=== PATIENT | female | born 1970 | race Hispanic/Latino ===

== ENCOUNTER 2023-11-20 10:25 | Inpatient (IN) | payer OTHER ==
[~2023-11-20] VITALS: Ht 149.9 cm; Wt 58.0 kg
[2023-11-20 10:59] LABS: BASOPHILS 0.3 % (0-2); EOSINOPHILS 0.8 % (0-6); HEMATOCRIT 38.8 % (35.0-50.0); HEMOGLOBIN 12.9 g/dL (12.0-18.0); MCH 29.1 (27-36); MCHC 33.3 g/dl (30-36); MCV 87.2 fl (81-99); NEUTROPHILS 68.9 % (39-80); PLATELET COUNT 294 K/uL (140-440); RBC 4.44 M/ul (4.3-5.7); RDW 12.7 (10.5-15.0)
[2023-11-20] MEDS ORDERED: CEFTRIAXONE/SODIUM CHLORIDE 2 GM/100 ML PIGGYBACK IV ONE (11:00)
[2023-11-20] MEDS ORDERED: SODIUM CHLORIDE 0.9% 1,000 ML IV ONE (11:00)
[2023-11-20 11:11] LABS: INR 1.04 (0.80-1.30); PROTIME 13.2 Sec (11.2-14.2)
[2023-11-20 11:13] LABS: PARTIAL THROMBOPLASTIN TIME 27.5 Sec (22.9-41.3)
[2023-11-20] MEDS ORDERED: methylPREDNISolone SOD SUCC 125 MG/2 ML VIAL IV ONE (11:15)
[2023-11-20] MEDS ORDERED: SODIUM CHLORIDE 0.9% 1,000 ML IV PRN (11:15)
[2023-11-20] MEDS ORDERED: AZITHROMYCIN/DEXTROSE 500 MG/250 ML BAG IV ONE (11:15)
[2023-11-20] MEDS ORDERED: ALBUTEROL/IPRATROPIUM 3 ML NEB INH ONE ×2 (11:15→12:30)
[2023-11-20 11:18] LABS: ALBUMIN 2.7 g/dL (3.4-5.0); ALBUMIN/GLOBULIN RATIO 0.47 (1.1-2.4); ANION GAP 14.7 (7-21); BUN/CREATININE RATIO 13.04 (6.0-28.6); CALCIUM 9.1 mg/dL (8.5-10.1); CREATININE, SERUM 0.69 mg/dL (0.55-1.02); POTASSIUM 3.7 mmol/L (3.5-5.1); PROTEIN, TOTAL 8.5 g/dL (6.4-8.2)
[2023-11-20 11:22] LABS: LACTIC ACID, BLOOD 1.1 mmol/L (0.4-2.0)
[2023-11-20 11:30] LABS: BILIRUBIN, URINE NEGATIVE (negative); BLOOD/HGB, URINE NEGATIVE (Negative); KETONE, URINE SMALL (Negative); LEUK ESTERASE, URINE SMALL (negative); NITRITE, URINE NEGATIVE (negative); PH, URINE 6.5 (5-7)
[2023-11-20 11:35] LABS: EPITHELIAL CELLS, URINE SQUAMOUS 2+ /lpf (0-1+)
[2023-11-20 11:36] LABS: BACTERIA, URINE 1+ /hpf (negative); CASTS, URINE NONE SEEN \\lpf; COLLECTION TYPE, URINE CLEAN CATCH; CRYSTALS, URINE NONE SEEN (0-1+); RED BLOOD CELLS, URINE 0-1 /hpf (0-5); REFLEX CULTURE, URINE No (No)
[2023-11-20 11:56] LABS: INFLUENZA B NAA NEGATIVE (NEGATIVE); RESPIRATORY SYNCYTIAL VIR NAA NEGATIVE (NEGATIVE)
--- OUTSIDE RECORDS SUMMARY | 2023-11-20 12:57 | XMS ---
PreManage Notification: DARON RATLIFF Security [employer] Events No recent Security Events currently on file CRITERIA MET - [facility] - 2 Visits in 30 Days CARE PROVIDERS -, [facility] Dentist: Fast Food Manager [facility] PHONE: [phone] -Esteban- Dentist: Fast Food Manager Current [facility] PHONE: [phone] KELSEY PAZ Current PHONE: Unknown [facility]Center: [facility] Qualified [facility] Current WORKERS CLINIC [facility] ([facility]) [facility] PHONE: [phone] Kiesha has no Care Guidelines for this patient. Karlos VISIT COUNT (12 MO.) 1 CHERISE Villatoro [employer] TOTAL 2 NOTE: Visits indicate total known visits. ED/UCC VISIT TRACKING (12 MO.) 11/20/2023 10:26 CHERISE Malin [place] TYPE: Emergency COMPLAINT: - COLD/FLU SYMPTOMS WORSENING 11/09/2023 17:21 [facility] OR TYPE: Emergency DIAGNOSES: - Other specified abnormal findings of blood chemistry - Pneumonia, unspecified organism - CHEST PAIN INPATIENT VISIT TRACKING (12 MO.) No inpatient visits to display in this time frame [id number]
[2023-11-20] MEDS ORDERED: DEXTROSE 5% - NACL 0.45% 1,000 ML IV SCH (14:15)
[2023-11-20] MEDS ORDERED: ENOXAPARIN SODIUM 40 MG/0.4 ML SYR SUB-Q SCH (14:53)
[2023-11-20 14:54] VITALS: BP 131/69
--- NOTE | 2023-11-20 15:54 | NUR ---
PT TO [facility] VIA STRETCHER SONS X2 PRESENT. PT SELF TRANSFERS TO BED. INTURPETOR SERVICES OFFERED AND REFUSED BOTH BOYS SPEAK FLUENT TAIWANESE PT UNDERTANDS THINGS SAID ANSWERING APPROPRIATELY TO SEVERAL YES/NO QUESTIONS. PT AGREES SHE UNDERSTANDS SHE CAN REQUEST COMMUNICATION SERVICES AT ANYTIME. ORIENTED TO ROOM AND BED CONTROLS. FRESH H20 AND FRUIT PLATE PROVIDED ROOM TEMP ADJUSTED. PT AMBULATES TO THE RESTROOM STEADY ON HER FEET MAINTAIN SATS LOW 90'S RETURNS TO BED. BREATHING PATTERN IS QUICK AND SHALLOW. PT RECEIVED SEPSIS PROTOCOL IN ER INCLUDING ABX BOLUS ETC ARRIVES AT [facility] WITH ELEVATED HR AND RESP RATE SCREENINGS ARE REFLECTIVE OF SEPSIS BUT IT IS BELIEVED FALSE POSITIVE LACTIC IS IN NORMAL RANGE AND POSITIVE SIGNS ARE RESOLVING PT RELAXES. HR IN THE 80'S TEMP IS LOWER ETC. MONTORING CONTINUES
--- NOTE | 2023-11-20 17:07 | NUR ---
PT HAS BEEN RESTING IN BED WATCHING TV SINCE ARRIVAL. BREATHING CONTINUES TO BE SHALLOW AND RAPID BUT NO DISTRESS OR S/O SOB. SATS 94% ON 2L NC. PT AGREES SHE IS COMFORTABLE. HR IS IN THE 80'S WAS OVER 100 ON ARRIVAL. PT IS DRINKING PLENTY OF H20 AND HAS EATEN A PLATE OF FRUIT WHILE WAITING FOR EVENING MEAL. DENIES NEEDS AT THIS TIME
[2023-11-20 17:53] VITALS: BP 118/71
--- NOTE | 2023-11-20 17:55 | NUR ---
VITALS COMPLETE. JELLO AND APPLE JUICE PROVIDED. DENIES ANY NEEDS AT THIS TIME. CALL LIGHT IN REACH
[2023-11-20 17:58] VITALS: BP 118/71
--- NOTE | 2023-11-20 18:49 | NUR ---
PT INSTRUCTED ON USING I/S. SHE CONTINUES WITH SMALLER BREATHS STATES DEEP BREATHS HURT HER CHEST. SON REMAINS IN THE ROOM WITH HER AGREES TO CANE PILER AND ENCOURAGE PT TO USE I/S WHEN COMMERCIALS COME ON AND TRY TO GET HER TO FILL HER LUNGS
--- NOTE | 2023-11-20 19:05 | NUR ---
SHIFT REPORT RECEIVED FROM WHIT JARVIS, ASSUMING CARE OF PT.
--- NOTE | 2023-11-20 20:00 | NUR ---
PT RESTING IN BED QUIETLY, AWAKE AND ALERT, SON RUSLAN AT BEDSIDE AND INTERPRETING FOR PT PER PT'S REQUESTS, PT DENIES NEEDS AT THIS TIME, FRESH WATER GIVEN, HOB ELEVATED APPROX 25-30%, SIDE RAILS UP X 2.
--- NOTE | 2023-11-20 20:50 | NUR ---
TC TO DR QUEVEDO, REQUESTING ORDER FOR PAIN WITH COUGHING AND POSSIBLE NAUSEA, ORDERS RECEIVED FOR TYLENOL 1000MG Q6P AND ZOFRAN 8MG IV Q6P.
[2023-11-20 21:05] VITALS: BP 135/76
[2023-11-20] MEDS ORDERED: ondansetron HCL 4 MG/2 ML VIAL IV PRN (21:15)
[2023-11-20] MEDS ORDERED: ACETAMINOPHEN 500 MG TAB PO PRN (21:15)
--- NOTE | 2023-11-20 21:59 | NUR ---
PT MEDICATED FOR C/O PAIN WITH COUGHING WITH TYLENOL PER ORDER, PT REMAINS WITH HOB ELEVATED APPROX 25 DEGREES, SIDE RAILS UP X 2, SON ASLEEP ON COUCH, CALL LIGHT IN REACH.
--- NOTE | 2023-11-20 23:22 | NUR ---
PT RESTING QUIETLY IN BED, TALKING ON PHONE, NODS YES WHEN ASKED IF OK, SON REMAINS AT BEDSIDE, RESP EVEN AND REG.
[2023-11-20 23:31] VITALS: BP 135/76
[2023-11-21] VITALS (11 sets, daily range): BP systolic 119–159; BP diastolic 58–94
--- NOTE | 2023-11-21 00:45 | NUR ---
PT LAYING ON LEFT SIDE, APPEARS TO SLEEP, RESP EVEN AND REG, CPOX AT 92%, SON ASLEEP ON COUCH.
--- NOTE | 2023-11-21 01:49 | NUR ---
PATIENT USED THE BATHROOM WITH MINIMAL ASSIST. PATIENT VOIDED 700ML YELLOW URINE. PATIENT IS BACK IN BED. SON IN THE ROOM. THIS INFORMATION TECHNOLOGY TEACHER ASKED IF SHE NEEDS ANYTHING. SON TRANSLATED STATING "APPLE JUICE". PROVIDED.
--- NOTE | 2023-11-21 03:57 | NUR ---
PT APPEARS TO SLEEP, LAYING ON RIGHT SIDE, RESP EVEN AND REG, CPOX AT 94%.
[2023-11-21 05:40] LABS: BASOPHILS 0.7 % (0-2); EOSINOPHILS 0.1 % (0-6); HEMATOCRIT 34.3 % (35.0-50.0); HEMOGLOBIN 11.7 g/dL (12.0-18.0); LYMPHOCYTES 20.4 % (24-44); MCH 29.4 (27-36); MCHC 34.1 g/dl (30-36); MCV 86.3 fl (81-99); MONOCYTES 7.4 % (0-12); NEUTROPHILS 71.4 % (39-80); PLATELET COUNT 272 K/uL (140-440); RBC 3.97 M/ul (4.3-5.7); RDW 12.7 (10.5-15.0)
[2023-11-21 06:01] LABS: ANION GAP 13.2 (7-21); BUN/CREATININE RATIO 24.56 (6.0-28.6); CALCIUM 9.1 mg/dL (8.5-10.1); CREATININE, SERUM 0.57 mg/dL (0.55-1.02); POTASSIUM 4.2 mmol/L (3.5-5.1)
--- NOTE | 2023-11-21 06:05 | NUR ---
PT AWAKE, VS COMPLETED, AFEBRILE, VS STABLE, RESP ASSESSMENT COMPLETED, PT DENIES PAIN, APPLE JUICE GIVEN, PT RESTING.
--- NOTE | 2023-11-21 07:45 | NUR ---
Patient in bed resting, respirations non labored. Patient is on 3L oxygen per nc, respirations non labored, sp02 92% at this time. Personal supplies and call light within reach.
--- NOTE | 2023-11-21 08:53 | NUR ---
PATIENT AMBULATED IN HALLWAY FOR A SHORT WALK WITH MYSELF AND RT FOR HOME 02 EVAL. PATIENT SHORT OF BREATH WITH EXERTION, SP02 DROPPED TO 85%, OXYGEN INCREASED TO 5L. PATIENT BROUGHT BACK TO ROOM, SHE SLOWLY RETURNED TO 89-90%. PATIENT POSITIONED IN HIGH FOWLERS TO FINISH HER BREAKFAST. SON REMAINS AT BEDSIDE. PATIENT REPORTS SHE HAS NO NEEDS, RESP 24/MIN.
[2023-11-21] MEDS ORDERED: CEFTRIAXONE/SODIUM CHLORIDE 2 GM/100 ML PIGGYBACK IV SCH (09:00)
[2023-11-21] MEDS ORDERED: AZITHROMYCIN 500 MG in DEXTROSE 5% 250 ML IV SCH (09:00)
[2023-11-21] MEDS ORDERED: FUROSEMIDE 40 MG/4 ML VIAL IV ONE (09:45)
--- NOTE | 2023-11-21 11:30 | NUR ---
Patient sitting up in chair, she continues on 5L oxygen per nc, respirations non labored. Sp02 92%.
[2023-11-21] MEDS ORDERED: PHARMACY RENAL DOSE ADJUSTMENT 1 DOSE MISC PO SCH (12:00)
[2023-11-21] MEDS ORDERED: VANCOMYCIN HCL 1,250 MG in DEXTROSE 5% 250 ML IV ONE (14:15)
[2023-11-21] MEDS ORDERED: PIPERACILLIN/TAZOBACTAM 3.375 GM in DEXTROSE 5% 100 ML IV SCH (14:28)
--- NOTE | 2023-11-21 14:30 | NUR ---
RT AT BEDSIDE DRAWING AN ABG. PATIENT'S OXYGEN DEMAND INCREASED TO 13L ON HIGH FLOW 02, SPO2 IS 92% AT THIS TIME. RT REPORTS THEY REACHED OUT TO DR. CHEN REGARDING PATIENT STATUS CHANGE. PATIENT DOES NOT APPEAR TO HAVE SOB AT THIS TIME. RUSLAN, PT'S SON UPDATED, HE ARRIVED TO THE HOSPITAL WITHIN FIVE MINUTES OF MY PHONE CALL. PT REPORTS SHE IS NOT SHORT OF BREATH, SHE DOES REPORT CHEST DISCOMFORT WHEN SHE INSPIRES ONLY. DR. QUEVEDO AT BEDSIDE UPDATING SON ON PLAN OF CARE. CHEST X-RAY, TROPONIN, LIPID PANEL, A1C AND EKG DONE PER DR. QUEVEDO'S ORDERS. NEW IV ABX STARTED FOR ZOSYN AND VANCO. PATIENT AWARE SHE WILL BE GOING TO THE CCU UNIT FOR CLOSER OBSERVATION.
[2023-11-21] MEDS ORDERED: VANCOMYCIN PER PHARMACY PROTOCOL IV SCH (14:41)
[2023-11-21 14:45] LABS: BASE EXCESS, BLOOD GAS 2.2 mmol/L (-2-2); HCO3, BLOOD GAS 25.5 mmol/L (22-26); O2 SATURATION, BLOOD GAS 94.5 % (95.0-100.0); PH, BLOOD GAS 7.47 (7.35-7.45); PO2, BLOOD GAS 70 mmHg (80-100); TOTAL CO2, BLOOD GAS 26.6
[2023-11-21 14:46] LABS: OXYGEN RECEIVED, BLOOD GAS 13LPM
[2023-11-21 14:55] LABS: CHOLESTEROL/HDL RATIO 3.3
--- NOTE | 2023-11-21 15:38 | NUR ---
PATIENT ARRIVED TO ROOM 129 VIA CHAIR AT 1525 ACCOMPIANED BY SON. HFNC CANNULA IN PLACE WITH O2 SAT 95% 12L. REPORT RECEIVED FROM SIMONA JIN. DR. QUEVEDO IN ROOM AND UPDATED PATIENT AND STAFF ON POC.
[2023-11-21] MEDS ORDERED: ALBUTEROL/IPRATROPIUM 3 ML NEB INH SCH (16:00)
--- NOTE | 2023-11-21 16:02 | NUR ---
MACI RN UPDATED PROVIDER ON LAB RESULTS. NO NEW ORDERS AT THIS TIME. PATIENT REMAINS RESTING IN CHAIR. PARTICIPATED IN ASSESSMENT. SON ASSISTING WITH INTERPRETING AT THIS TIME AND REMAINS AT BEDSIDE. CALL LIGHT IN REACH. ENCOURAGED CONTINUED USE OF ACAPPELLA AND IS.
--- NOTE | 2023-11-21 16:30 | NUR ---
PATIENT CONTINUES TO REST IN CHAIR. ENCOURAGED IS USE, PATIENT ACHIEVED 500ML. REINFORCED EDUCATION TO USE FREQUENTLY ALONG WITH ACAPELLA. DENIES PAIN, NEEDS OR CONCERNS AT THIS TIME. CALL LIGHT IN REACH.
--- NOTE | 2023-11-21 17:05 | NUR ---
PATIENT UP TO BSC TO VOID. RESPIRATORY RATE INCREASED TO 33 WITH O2 DESATURATION TO 86%. O2 INCREASED FROM 11L TO 13L WITH IMPROVEMENT TO 91% AT THIS TIME. POOR APPETITE NOTED, ONLY BITES OF SUPPER. OFFERED TO GET SOMETHING ELSE THAT SHE MAY WANT TO EAT BUT PATIENT DECLINED. SON REMAINS AT CHAIRSIDE, CALL LIGHT IN REACH.
--- NOTE | 2023-11-21 17:21 | NUR ---
O2 96-98%, REDUCED FLOW TO 12L WITH O2 SATS AT 94%. PATIENT DENIES PAIN, NEEDS OR CONCERNS AT THIS TIME.
[2023-11-21] MEDS ORDERED: ARTIFICIAL TEARS 15 ML BTL OU PRN (17:30)
--- NOTE | 2023-11-21 18:04 | NUR ---
PATIENT RESTING IN CHAIR WHILE WATCHING TV. SON AT BEDSIDE. RT WORKED WITH PATIENT TO EXPECTORATE SPUTUM AND SENT SPECIMEN TO THE LAB. PATIENT DENIES NEEDS OR CONCERNS AT THIS TIME. CALL LIGHT IN REACH.
--- NOTE | 2023-11-21 18:18 | NUR ---
DR. QUEVEDO IN TO SEE PATIENT. EYE GTT ADMINISTERED PER EMAR.
--- NOTE | 2023-11-21 19:49 | NUR ---
PATIENT SITTING UP IN RECLINER, SHE IS ALERT AND ORIENTED, Сергей NUGENT IN FOR SCHEDULED NEBS AND ASSESSMENT, FULL ASSESSMENT ALSO COMPLETE BY THIS RN. NO NEW CONCERNS, WILL ATTEMPT TO TITRATE OXYGEN DOWN AND MONITOR SATURATION, CURRENTLY 98 ON 13L, TITRATED TO 11L BY RAFFI, WILL MONITOR RESPONSE, PATIENT HAS TWO FAMILY MEMBERS IN ROOM, SHE VERBALIZED THAT SHE PREFERS SON TO INTERPRET [facility] INSTRUMENT/CONTROL TECHNICIAN SERVICE. PAPER SIGNED IN CHART.
--- NOTE | 2023-11-21 21:43 | NUR ---
PATIENT UP TO BEDSIDE COMMODE, INCREASED OXYGEN TO 11L FOR ACTIVITY, PATIENT INTO BED, RECOVERED TO 97% OXYGEN SATURATION, TITRATED OXYGEN BACK TO 9L HIGH FLOW N.C., PATIENT NOW AT 96%. PATIENT VOIDED 350ML OF CLEAR YELLOW URINE, FRESH WATER PROVIDED TO HER AND HER SON AT BEDSIDE.
[2023-11-21] MEDS ORDERED: VANCOMYCIN HCL 750 MG in DEXTROSE 5% 250 ML IV SCH (22:00)
--- NOTE | 2023-11-21 22:08 | NUR ---
TALKED WITH ON THE PHONE TO UPDATE TO PATINET A1C 12.3, AND CURRENT BEDSIDE ACCUCHECK 234, NEW OR TO START INSULIN S/S WITH ACCUCHECKS. SEE EMAR
[2023-11-21] MEDS ORDERED: DEXTROSE 50% 50 ML SYR IV PRN ×2 (22:15)
[2023-11-21] MEDS ORDERED: DEXTROSE 5% 1,000 ML IV PRN (22:15)
[2023-11-21] MEDS ORDERED: IBLOOD GLUCOSE TEST STRIP 1 EA TEST XX PRN (22:15)
[2023-11-21] MEDS ORDERED: GLUCAGON,HUMAN RECOMBINANT 1 MG/ML VIAL SUB-Q PRN (22:15)
[2023-11-21] MEDS ORDERED: INSULIN LISPRO 100 UNIT/ML ML SUB-Q SCH (22:45)
--- NOTE | 2023-11-21 23:32 | NUR ---
PATIENT RESTING IN BED REPORTS NO PAIN, ALERT AND ORIENTED, WATCHING TV. SON IN ROOM RESTING ON COUCH
[2023-11-22] VITALS (17 sets, daily range): BP systolic 90–122; BP diastolic 58–78
[2023-11-22] MEDS ORDERED: ALBUTEROL/IPRATROPIUM 3 ML NEB INH SCH
--- NOTE | 2023-11-22 00:07 | NUR ---
OXYGEN TITRATED TO 5L HIGH FLOW N.C. AT THIS TIME. 97% OXYGEN SATURTION AT THIS TIME. PATIENT IS ALERT AND ORIENTED WATCHING TV.
--- NOTE | 2023-11-22 03:43 | NUR ---
PATIENT RESTING QUIELTY IN BED, EYES CLOSED, RR 22/MIN, 95% OXYGEN SATURATION ON 3L N.C., NO DISTRESS NOTED WHILE ROUNDING IN ROOM. PATIENT'S SON RESTING IN ON COUCH IN ROOM.
--- NOTE | 2023-11-22 04:21 | NUR ---
PATIENT USED CALL LIGHT TO REQUEST ASSISTANCE TO BATHROOM. STANDBY ASSIST, PATIENT WAS ON 3L MAINTAINING 95% OXYGEN SATURATION, INCREASED OXYGEN TO 5L FOR AMBULATION TO BATHROOM, PATIENT MAINTAINED AVERAGE OF 90% AND BETTER WITH ACTIVITY, NOTED INCREASE RESPIRATORY RATE TO 30-40/MIN, AND HEART RATE TO 130/MIN, PATIENT RECOVERED IN LESS THAN A MINUTE AT REST. HEART RATE NOW 95/MIN AND RESPIRATORY RATE 25/MIN. PATIENT PROVIDED A CLEAR ENSURE DILUTED WITH WATER PER HER REQUEST. SHE HAS HAD POOR APPETITE.
[2023-11-22 05:25] LABS: ANION GAP 12.2 (7-21); BUN/CREATININE RATIO 13.43 (6.0-28.6); CALCIUM 8.5 mg/dL (8.5-10.1); CREATININE, SERUM 0.67 mg/dL (0.55-1.02); POTASSIUM 3.2 mmol/L (3.5-5.1)
--- NOTE | 2023-11-22 07:40 | NUR ---
REPORT RECEIVED FROM SIMONA VALENCIA. PATIENT SITTING UP IN BED, RT IN ROOM TO DO CHEST PT. SON AT BEDSIDE. PATIENT DENIES NEEDS
[2023-11-22] MEDS ORDERED: IBLOOD GLUCOSE TEST STRIP 1 EA TEST VI SCH ×2 (08:00)
[2023-11-22] MEDS ORDERED: INSULIN LISPRO 100 UNIT/ML ML SUB-Q SCH (08:00)
--- NOTE | 2023-11-22 08:38 | NUR ---
PATIENT UP TO BEDSIDE COMMODE. NOTED ACTIVITY INTOLERANCE AEB TACHYCARDIA AND TACHYPNEA. RR INCREASED TO 33, HR INCREASED TO 120S. O2 SAT DECREASED TO LOW 80S, O2 NC INCREASED TO 5L. PATIENT O2 SATS INCREASED TO 93% AT REST. SON REMAINS AT BEDSIDE. CALL LIGHT IN REACH.
[2023-11-22 09:17] LABS: BASOPHILS 0.4 % (0-2); EOSINOPHILS 0.3 % (0-6); HEMATOCRIT 35.6 % (35.0-50.0); HEMOGLOBIN 11.7 g/dL (12.0-18.0); LYMPHOCYTES 17.8 % (24-44); MCH 28.6 (27-36); MCV 86.7 fl (81-99); MONOCYTES 9.9 % (0-12); NEUTROPHILS 71.6 % (39-80); PLATELET COUNT 303 K/uL (140-440); RDW 12.6 (10.5-15.0)
[2023-11-22] MEDS ORDERED: PANTOPRAZOLE SODIUM 40 MG TABEC PO SCH (09:20)
[2023-11-22] MEDS ORDERED: BENZONATATE 100 MG CAP PO PRN (09:30)
[2023-11-22] MEDS ORDERED: FUROSEMIDE 40 MG/4 ML VIAL IV ONE (09:30)
[2023-11-22] MEDS ORDERED: MAGNESIUM SULFATE 2 GM/50 ML BAG IV SCH (09:30)
[2023-11-22] MEDS ORDERED: POTASSIUM CHLORIDE 10 MEQ TABCR PO ONE (09:30)
[2023-11-22] MEDS ORDERED: POTASSIUM CHLORIDE 40 MEQ,LIDOCAINE HCL 1% 40 MG in DEXTROSE 5% 250 ML IV ONE (09:30)
--- NOTE | 2023-11-22 09:39 | NUR ---
PLAN OF CARE REVIEWED WITH PROVIDER, NEW ORDERS RECEIVED FOR TESSALON, LASIX X1 DOSE, PROTONIX, POTASSIUM AND MAG REPLACEMENT WELL AM LABS. PATTERN HAND IN ROOM FOR STUDY.
--- NOTE | 2023-11-22 10:19 | NUR ---
PATIENT UP TO CHAIR. TOLERATED ACTIVITY WELL. IV ABX, MG AND K INFUSING. CALL LIGHT IN REACH. O2 DECREASED TO 4L WITH SAT 94%. SON REMAINS AT BEDSIDE.
--- NOTE | 2023-11-22 11:00 | NUR ---
Spoke with pt and her son. Pt answers questions and at times, son answers. Pt lives in a trailer with her 3 children. Carlos is present. 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 She does not use any DME. Children assist with the cooking, cleaning, shopping. Son states he grocery shopped today. Pt does not drive. Pt denies financial issues. They do not use the food bank of have food stamps. Pt plans on dc to home when cleared medically. Pt has an appt to establish care with [facility] in [place] on the 28 of November at 2:20 pm with Yolanda Winn. Pt has further workup scheduled for today. Unclear what her dc date will be at this time.
--- NOTE | 2023-11-22 11:10 | NUR ---
UR CLINICAL REVIEW: [facility] FOR PNEUMONIA ODS [facility] INPT 11/20/23 @ 1414 ORDER MATCHES REG CLINICALS FAXED TO [facility] FOR REVIEW DISCHARGE TO HOME WHEN STABLE 11/24/23
--- NOTE | 2023-11-22 11:22 | NUR ---
PATIENT REMAINS UP IN CHAIR. UP TO BSC MULTIPLE TIMES TO VOID. O2 DECREASED TO 4L, O2 SAT 97%. SON IN ROOM. PATIENT DENIES NEEDS. CALL LIGHT IN REACH.
--- NOTE | 2023-11-22 13:15 | EKG ---
[facility] [address] [facility] [place] [address] Signed Normal sinus rhythm Minimal voltage criteria for LVH, may be normal variant ( [place] product ) Inferior infarct (cited on or before 20-NOV-2023) Cannot rule out Anterior infarct , age undetermined Abnormal ECG When compared with ECG of 20-NOV-2023 11:14, (Unconfirmed) T wave inversion now evident in Anterior leads QT has shortened Confirmed by Jennifer Quevedo MD ([id number]) on 11/22/2023 1:15:37 PM Electronically Signed By: JENNIFER QUEVEDO 11/22/23 1315 PATIENT NAME: DARON RATLIFF Electrocardiogram DATE OF : 72 PHYSICIAN: JENNIFER QUEVEDO REPORT #: [id number] REPORT IS CONFIDENTIAL AND NOT TO BE RELEASED WITHOUT AUTHORIZATION
--- NOTE | 2023-11-22 13:30 | EKG ---
[facility] [address] [facility] [place], [place] [address] Signed Normal sinus rhythm Possible Inferior infarct , age undetermined Abnormal ECG No previous ECGs available Confirmed by Jennifer Quevedo MD ([id number]) on 11/22/2023 1:29:50 PM Electronically Signed By: JENNIFER QUEVEDO 11/22/23 1330 PATIENT NAME: DARON RATLIFF Electrocardiogram DATE OF : 72 PHYSICIAN: JENNIFER QUEVEDO REPORT #: [id number] REPORT IS CONFIDENTIAL AND NOT TO BE RELEASED WITHOUT AUTHORIZATION
--- NOTE | 2023-11-22 13:34 | NUR ---
PATIENT RESTING WHILE UP IN CHAIR. LAB IN ROOM TO DRAW VANCO LEVEL.
[2023-11-22 14:05] LABS: VANCOMYCIN, TROUGH 8.8 ug/mL (5.0-20.0)
[2023-11-22] MEDS ORDERED: VANCOMYCIN HCL 1,000 MG in DEXTROSE 5% 250 ML IV SCH (14:30)
--- NOTE | 2023-11-22 14:39 | NUR ---
PATIENT REPORTS FEELING TIRED. BACK TO BED. IV ABX INFUSING. DENIES NEEDS. COUGHING UP SMALL AMOUNT OF THICK, YELLOW SPUTUM. SON AT BEDSIDE. DENIES NEEDS AT THIS TIME. CALL LIGHT IN REACH.
--- NOTE | 2023-11-22 14:46 | NUR ---
O2 SAT 99-100% WHILE RESTING WITH EYES CLOSED. O2 NC DECREASED TO 3L.
--- NOTE | 2023-11-22 15:14 | NUR ---
RT IN ROOM FOR CHEST PT.
--- NOTE | 2023-11-22 16:24 | NUR ---
PATIENT RESTING IN BED. REPORTS SHE FEELS LIKE SHE IS HAVING A HARD TIME EXPECTORATING SPUTUM. REVIEWED WITH DR. QUEVEDO. GUAIFENESIN ORDER RECEIVED. PATIENT CONTINUES TO EXPRESS POOR APPETITE. DECLINES SUPPER BUT SANDWICH ORDERED FOR LATER.
[2023-11-22] MEDS ORDERED: guaiFENesin 600 MG TABCR PO SCH ×2 (17:00→21:00)
--- NOTE | 2023-11-22 17:14 | NUR ---
PATIENT RESTING WITH EYES CLOSED WHILE IN BED. WAKES EASILY FOR INTERVENTIONS. MEDICATED PER EMAR WITH GUAIFENESEN AND SLIDING SCALE INSULIN. DENIES OTHER NEEDS OR CONCERNS. SON AT BEDSIDE. CALL LIGHT IN REACH.
--- NOTE | 2023-11-22 19:30 | NUR ---
REPORT RECEIVED FROM DAY SHIFT RN CAYETANO. PATIENT ASSISTED TO BSC. 1 PA ASSIST, DESATURATION NOTED 87% O2 INCREASED TO 5L HIFLO VIA NC. PATIENT RECOVERED WELL ONCE BACK IN BED. RT IN ROOM WITH PATIENT AT THIS TIME. PATIENT'S SON ALSO IN ROOM. PATIENT DENIES ANY PAIN. CALL LIGHT WITHIN REACH.
--- NOTE | 2023-11-22 20:35 | NUR ---
PATIENT VSS, DENIES ANY PAIN OR DISCOMFORT. LUNG SOUNDS CORASE WITH CRACKLES THROUGHOUT, DIM IN THE BASES. BOWEL TONES HYPOACTIVE X 4 QUADRANTS. HS MEDICATIONS ADMININSTERED. TACHYCARDIA NOTED WITH INCREASED ACTIVITY. OXYGEN DEMAND INCREASED WITH ACTIVITY. PATIENT REQUESTED BED BATH WIPES AND WANTS TO WIPE HER SELF WHILE IN BED. OXYGEN REMAINS ON 5L/MIN WHILE PATIENT COMPLETES ACTIVITY. NOTED PRODUCTIVE COUGH AT TIMES. SMALL SPUTUM AMOUNTS SEND TO LAB. NO FURTHER NEEDS AT THIS TIME. CALL LIGHT WITHIN REACH. SON AT BEDSIDE.
[2023-11-22] MEDS ORDERED: SENNOSIDES/DOCUSATE 1 EA TAB PO SCH (21:00)
[2023-11-22] MEDS ORDERED: POLYETHYLENE GLYCOL 3350 1 PACKET PO SCH (21:00)
--- NOTE | 2023-11-22 22:15 | NUR ---
IV ABX HUNG. IV SITES PATENT. PATIENT DENIES ANY PAIN OR SOB AT THIS TIME. SON AT BEDSIDE. NO FURTHER NEEDS. CALL LIGHT WITHIN REACH.
[2023-11-23] VITALS (23 sets, daily range): BP systolic 86–116; BP diastolic 57–72
--- NOTE | 2023-11-23 00:22 | NUR ---
PATIENT RESTING IN BED. LUNG SOUNDS WITH CRACKLES THROUGHOUT, DIM IN BASES. IV ABX INFUSING WITH NO CONCERNS. IV SITES WNL. NO FURTHER NEEDS AT THIS TIME CALL LIGHT WITHIN REACH.
[2023-11-23 01:04] LABS: PROCALCITONIN 0.05 ng/mL (())
--- NOTE | 2023-11-23 01:35 | NUR ---
PATIENT RESTING IN BED WITH EYES CLOSED. RESPIRATIONS 20 PER MINUTE EVEN AND UNLABORED. CALL LIGHT WITHIN REACH.
--- NOTE | 2023-11-23 02:20 | NUR ---
IV PUMP ALARMING. ABX COMPLETED. IV SITE WNL. PATIENT WITH NO NEEDS AT THIS TIME. CALL LIGHT WITHIN REACH.
--- NOTE | 2023-11-23 04:00 | NUR ---
PATIENT RESTING IN BED WITH EYES CLOSED. RESPRIATIONS EVEN AND UNLABORED, REMAINS ON HIFLO OXYGEN AT 2L/MIN. RT CHECKING ON PATIENT AT THIS TIME. CALL LIGHT WITHIN REACH.
--- NOTE | 2023-11-23 05:00 | NUR ---
PATIENT RESTING IN BED, WITH OXYGEN IN PLACE. LUNGS WITH CRACKLES, DIM THROUGHOUT. AFEBRILE THIS AM. DENEIS ANY FURTHER NEEDS AT THIS TIME. CALL LIGHT WITHIN REACH.
[2023-11-23 05:14] LABS: BASOPHILS 0.2 % (0-2); EOSINOPHILS 0.9 % (0-6); HEMATOCRIT 36.7 % (35.0-50.0); HEMOGLOBIN 12.3 g/dL (12.0-18.0); LYMPHOCYTES 28.3 % (24-44); MCHC 33.4 g/dl (30-36); MCV 86.8 fl (81-99); MONOCYTES 8.3 % (0-12); NEUTROPHILS 62.3 % (39-80); PLATELET COUNT 294 K/uL (140-440); RBC 4.23 M/ul (4.3-5.7); RDW 12.8 (10.5-15.0)
[2023-11-23 05:23] LABS: ANION GAP 9.8 (7-21); BUN/CREATININE RATIO 11.42 (6.0-28.6); CALCIUM 8.7 mg/dL (8.5-10.1); CREATININE, SERUM 0.7 mg/dL (0.55-1.02); MAGNESIUM 2.3 mg/dL (1.8-2.4); POTASSIUM 3.8 mmol/L (3.5-5.1)
--- NOTE | 2023-11-23 05:40 | NUR ---
PATIENT REPOSITIONED HERSELF IN BED, THEN BEGAN TO COUGH INTERMITTEN FOR APPROX 15 MIN, PATIENT OXYGEN SATURATION DROPPED TO 86% WHILE ON 2L N.C., OXYGEN TITRATED TO 5L N.C.,PATIENT RECOVERED OVER APPROX 1 MIN, R.T. CALLED FOR A NEB TX, TO HELP WITH PATIENT FEELING SOB. RAFFI R.Faisal. INTO PATIENT ROOM TO ADMINISTER ALBUTEROL NEB TX. PATIENT NOW 95% OXYGEN SATURATION ON 5L N.C.
--- NOTE | 2023-11-23 07:33 | NUR ---
SHIFT REPORT RECEIVED FROM SIMONA PEDRO. PATIENT RESTING IN BED WITH EYES CLOSED. RESPIRATIONS EVEN AND UNLABORED AT THIS TIME. HR 84 SINUS RHYTHM, RR20, O2 94% ON 3L NC. CALL LIGHT IN REACH. RUSLAN HER SON IS RESTING IN ROOM.
--- NOTE | 2023-11-23 08:20 | NUR ---
PATIENT UP TO CHAIR FOR BREAKFAST. PATIENT DESATTED WITH ACTIVITY TO 85%. O2 INCREASED TO 5L, O2 SAT IMPROVEMENT TO 95%. FULL LINEN CHANGE COMPLETED.
[2023-11-23] MEDS ORDERED: BUDESONIDE 0.5 MG/2 ML VIAL INH SCH (09:05)
[2023-11-23] MEDS ORDERED: ALBUTEROL SULFATE 0.5% 2.5 MG/0.5 ML VIAL INH PRN ×2 (09:15→09:45)
--- NOTE | 2023-11-23 09:33 | NUR ---
RT IN ROOM. DR. QUEVEDO REVIEWED RECORDS FROM [facility]. ORDER RECEIVED FOR INH MUCOMIST 300MG QID.
--- NOTE | 2023-11-23 09:57 | NUR ---
PATIENT RESTING IN CHAIR AFTER WORKING WITH RT. AM CARES OFFERED, PATIENT DECLINES AT THIS TIME. O2 SAT 98% ON 5L, DECREASED FLOW TO 3L. CALL LIGHT IN REACH.
--- NOTE | 2023-11-23 11:50 | NUR ---
PATIENT WAKES EASILY TO NAME. CONTINUES TO REST WHILE UP IN CHAIR. BLOOD GLUCOSE CHECK COMPLETED AND 1 UNIT OF SS INSULIN GIVEN. ORAL TEMP 99.3, PATIENT DECLINES TYLENOL BUT REQUESTS THERMOSTAT BE TURNED DOWN. ENCOURAGED INCENTIVE SPIROMITER USE, PATIENT ACHIEVES 500ML. DECLINES LUNCH. ENCOURAGED PO INTAKE. CALL LIGHT IN REACH. SON RUSLAN REMAINS AT BEDSIDE.
[2023-11-23] MEDS ORDERED: Acetylcysteine 800 MG/4 ML VIAL INH SCH (12:00)
--- NOTE | 2023-11-23 12:26 | NUR ---
PATIENT UP TO BR TO HAVE A BOWEL MOVEMENT. O2 INCREASED TO 6L WITH ACTIVITY, O2 SAT 90-93%, HR INCREASED TO 120S. RT IN ROOM FOR BREATHING TREATMENT AND CHEST PT.
--- NOTE | 2023-11-23 12:58 | NUR ---
SBAR REPORT HANDOFF RECEIVED FROM SIMONA MONTEIRO. ALL EVENTS OF THE SHIFT WERE DISCUSSED AND PLAN OF CARE REVIEWED. PATIENT DARON IS NOTED TO BE RESTING IN THE RECLINER WITH EYES OPEN. FAMILY MEMBER RUSLAN IS AT BEDSIDE. SHE DENIES ANY NEEDS OR DESIRES AT THIS POINT. SAFETY CHECK OF ROOM PERFORMED. VSS AND SLIGHTLY HYPOTENSIVE AT THE MOMENT. 92/60 (71). MD QUEVEDO AWARE AND PLAN HAS BEEN DISCUSSED
--- NOTE | 2023-11-23 14:00 | NUR ---
VISITED DURING SPIRITUAL CARE ROUNDS. PT APPEARED TO BE SLEEPING. DID NOT DISTURB. PROVIDED PRAYER.
--- NOTE | 2023-11-23 14:19 | NUR ---
DARON IS RESTING IN THE RECLINER WATCHING TELEVISION. SHE DENIES PAIN THIS HOUR AND REQUESTED GRAPE JUICE. 1400 PIP-TIFFANIE 3.75GM/ 100 GTT COMMENCED. LDA'S ARE PATENT AND INTACT. 5L HIGH FLOW N/C IN USE. SLIGHT HYPOTENSION 95/68 (77) NO OTHER NEEDS ENDORSED THIS HOUR.
--- NOTE | 2023-11-23 16:55 | NUR ---
ROUNDED WITH MD HERNÁNDEZ. THIS RN IS A [employer] MALDIVIAN SPEAKER. PATIENT ENDORSED COMFORT TO SPEAK WITH THIS RN AND DOCTOR WITHOUT THE USE OF A SERIALS LIBRARIAN. DARON DISCUSSED HER RESPIRATORY CHALLENGES SINCE 2006. SHE STATED THAT SHE WAS IN [facility] FOR 3 MONTHS WHERE SHE UNDERWENT A BIOPSY. SHE WAS UNABLE TO EXPLAIN WHAT THOSE TESTS SHOWED OTHER THAN "ERA UN PROBLEMA CON MIS PULMONES" OR "IT WAS A PROBLEM WITH MY LUNGS". SHE ENDORSES COMFORT, STATES THAT SHE FEELS SHE IS FEELING MUCH BETTER FROM THE LAST FEW DAYS, HAS WHITE/THIN PHLEGM, COUGH, AND DOES NOT HAVE ANY FURTHER QUESTIONS. PLAN TO CONTINUE ABX AND TRY TO WEAN DOWN O2 APPROPRIATE
--- NOTE | 2023-11-23 19:20 | NUR ---
REPORT RECEIVED FROM DAY SHIFT RN. PATIENT RESTING IN RECLINER WITH FAMILY AT BEDSIDE. OXYGEN IN PLACE AT 5L/MIN HIFLO. NO NEEDS AT THIS TIME. CALL LIGHT WITHIN REACH.
--- NOTE | 2023-11-23 19:35 | NUR ---
RT IN ROOM WITH PATIENT, BREATHING TREATMENT BEING ADMINSTERED.
--- NOTE | 2023-11-23 19:45 | NUR ---
NOTED COUGHING AND INCREASED SOB. PATIENT DESATURATING. OXYGEN SATURATION DECREASED TO 86% ON 5L HIFLO. RN IN ROOM MONITORING CLOSELY AND TITATRING OXYGEN UP TO BRING OXYGEN SATURATIONS WNL. PATIENT IS NOW ON 9L OF HIFLO O2 VIA NC TO MAINTAIN OXYGEN SATURATION BETWEEN 90% - 92%. LUNG SOUNDS CORASE, TIGHT AND CRACKLES NOTED THROUGHOUT, LOWER LOBES DIMINISHED. MD NOTIFIED OF PATIENT CHANGE.
--- NOTE | 2023-11-23 20:15 | NUR ---
MD HERNÁNDEZ ON UNIT TO ASSESS PATIENT. NEW ORDERS ENTERED.
--- NOTE | 2023-11-23 20:42 | NUR ---
XRAY ON UNIT AND IN ROOM WITH PATIENT.
[2023-11-23] MEDS ORDERED: VANCOMYCIN PER PHARMACY PROTOCOL IV SCH (20:59)
--- NOTE | 2023-11-23 21:00 | NUR ---
PATIENT REQUESTING ASSISTANCE TO BSC. RN ASSISTED PATIENT FROM RECLINER TO BSC. TOLLERATED TRANSFER TO BSC ON 9L HIFLO VIA NC.TRANSFER FROM BSC TO BED NOTED DESATURATION TO 77% ON 9L HIFLO. PATIENT ABLE TO SLOWLY RECOVER WITH OXYGEN L/MIN INCREASED. PATIENT SLOWLY TITRATED BACK DOWN TO 8L/MIN TO MAINTAIN O2SAT WNL.
--- NOTE | 2023-11-23 21:20 | NUR ---
PATIENT TAKEN DOWN TO CT VIA BED.
--- NOTE | 2023-11-23 21:50 | NUR ---
HS MEDICATIONS GIVEN, BLOOD SUGAR TAKEN. IV ABX STARTED. LAB IN ROOM. PATIENT REQUESTING JELLO TO EAT. JELLO GIVEN. VSS, AFEBRILE AT THIS TIME. SON AT BEDSIDE. NO FURTHER NEEDS. CALL LIGHT WITHIN REACH.
[2023-11-23] MEDS ORDERED: VANCOMYCIN HCL/D5W 1 GM/270 ML PIGGYBACK KIT IV SCH (23:00)
--- NOTE | 2023-11-23 23:21 | NUR ---
IV ABX HUNG. PATIENT RESTING IN BED, OXYGEN SATURATION WNL AT THIS TIME. CALL LIGHT WITHIN REACH.
[2023-11-24] VITALS (23 sets, daily range): BP systolic 93–121; BP diastolic 61–88
--- NOTE | 2023-11-24 01:31 | NUR ---
PATIENT RESTING IN BED WITH EYES CLOSED. RESPIRATIONS UNLABORED. OXYGEN SATURATION WNL. SON AT BEDSIDE. CALL LIGHT WITHIN REACH.
--- NOTE | 2023-11-24 03:10 | NUR ---
CALL LIGHT ANSWERED PATIENT UP TO BSC. OXYGEN WAS INCREASED TO 11L HIFLO VIA NC DURING TRANSFER AND UNTIL PATIENT WAS BACK IN BED. OXYGEN TITRATED BACK DOWN TO 5L HIFLO VIA NC ONCE BACK IN BED. SAO2 WNL AT THIS TIME. NOTED INCREASED SOB WITH INCREASED ACTIVITY. VSS AFEBRILE AT THIS TIME. NO FURTHER NEEDS AT THIS TIME. CALL LIGHT WITHIN REACH.
--- NOTE | 2023-11-24 04:04 | NUR ---
BREATHING TREATMENT ADMINSTERED. LUNG SOUNDS DIM. CRACKLES NOTED IN LOWER LOBES. PATIENT COUGHING POST BREATHING TREATMENT. PRODCUTIVE AT TIMES. OXYGEN INCREASED TO 10L/MIN WHEN PATIENT COUGHING TO MAINTAIN SA02 WNL.
[2023-11-24 05:20] LABS: BASOPHILS 0.5 % (0-2); EOSINOPHILS 2.3 % (0-6); HEMATOCRIT 35.5 % (35.0-50.0); HEMOGLOBIN 11.9 g/dL (12.0-18.0); LYMPHOCYTES 19.3 % (24-44); MCHC 33.6 g/dl (30-36); MCV 86.4 fl (81-99); MONOCYTES 8.5 % (0-12); NEUTROPHILS 69.4 % (39-80); PLATELET COUNT 298 K/uL (140-440); RBC 4.11 M/ul (4.3-5.7); RDW 12.7 (10.5-15.0)
[2023-11-24 05:34] LABS: ANION GAP 10.9 (7-21); BUN/CREATININE RATIO 11.86 (6.0-28.6); CALCIUM 8.7 mg/dL (8.5-10.1); CREATININE, SERUM 0.59 mg/dL (0.55-1.02); MAGNESIUM 1.8 mg/dL (1.8-2.4); POTASSIUM 3.9 mmol/L (3.5-5.1)
--- NOTE | 2023-11-24 06:14 | NUR ---
IV ABX HUNG. IV SITE REMAINS PATENT. PATIENT RESTING IN BED RESPIRATIONS EVEN AND UNLABORED. SAO2 WNL ON 5L HIFLO VIA NC. NO NEEDS AT THIS TIME. CALL LIGHT WITHIN REACH.
--- NOTE | 2023-11-24 07:50 | NUR ---
SBAR REPORT RECEIVED IN REPORT. DARON IN NOTED TO BE IN DISTRESS AND STATES THAT SHE IS HAVING TROUBLE BREATHING. CALMING TECHNIQUES APPLIED. O2 SATS 84% RT IN ROOM DELIVERING A RESPIRATORY TREATMENT. BIPAP MACHINE BROUGHT INTO ROOM. GLADYS MERCER AT BEDSIDE.
[2023-11-24] MEDS ORDERED: VANCOMYCIN HCL 1,000 MG in DEXTROSE 5% 250 ML IV SCH (08:00)
[2023-11-24] MEDS ORDERED: methylPREDNISolone SOD SUCC 40 MG/ML VIAL IV SCH (08:00)
--- NOTE | 2023-11-24 08:39 | NUR ---
MD HERNÁNDEZ CALLED TO BEDSIDE TO ASSESS DARON. PERISISTENT TACHYCARDIA SINCE RESPIRATORY TREATMENT AND MINOR ACTIVITY. HR 130-150. BIPAP PLACED 12/4 FIO2 100% INITIALLY AND TITRATED TO 80%. 12RR . SEE EMAR FOR NEW MEDICATIONS
[2023-11-24] MEDS ORDERED: FUROSEMIDE 40 MG/4 ML VIAL IV ONE ×2 (08:45→14:30)
--- NOTE | 2023-11-24 09:10 | NUR ---
HR SLIGHTLY IMPROVED 123-125 FOR THE LAST 10 MINUTES. EXTERNAL FEMALE CATHETER PLACED AT 0910 AND FUROSEMIDE GIVEN
--- NOTE | 2023-11-24 09:56 | NUR ---
DARON APPEARS MORE COMFORTABLE AT THE MOMENT. SHE IS LYING IN BED WATCHING TELEVISION. BIPAP REMAINS ON 12/4 FIO2 60%. SON RUSLAN REMAINS AT BEDSIDE. PUREWICK REMAINS PATENT AND INTACT
--- NOTE | 2023-11-24 10:09 | NUR ---
UR CONCURRENT CLINICAL REVIEW: [facility] [place] [facility] 11/20/23 @ 1414 ORDER MATCHES REG CLINICALS FAXED TO [facility] FOR REVIEW DISCHARGE TO HOME WHEN STABLE, POTENTIAL FOR TRANSFER TODAY IF CONTINUES WITH WORSENING CONDITION 11/27/23
--- NOTE | 2023-11-24 10:37 | NUR ---
VISITED DURING SPIRITUAL CARE ROUNDS. PT SUPPORTED BY FAMILY MEMBER IN ROOM. MOBILITY SPECIALIST PROVIDED SUPPORTIVE PRESENCE, HOSPTIALITY, PRAYER. FAMILY MEMBER EXPRESSED APPRECIATION.
[2023-11-24 10:42] LABS: BASE EXCESS, BLOOD GAS 3.1 mmol/L (-2-2); HCO3, BLOOD GAS 26.9 mmol/L (22-26); O2 SATURATION, BLOOD GAS 93.4 % (95.0-100.0); PCO2, BLOOD GAS 37.9 mmHg (35-45); PH, BLOOD GAS 7.46 (7.35-7.45); TOTAL CO2, BLOOD GAS 28.1
--- NOTE | 2023-11-24 11:08 | NUR ---
ROUNDED WITH MD HERNÁNDEZ AND RT PAULA. TACHYCARDIA AND TACHYPNEA IMPROVING. HR 115 AND RR 43. DARON STATES THAT SHE FEELS IMPROVED AND NO LONGER FEELS DISCOMFORT IN HER BELLY. SHE ALSO STATED THAT SHE FEELS LIKE SHE COULD KEEP BIPAP ON ALL NIGHT IF SHE NEEDED TO. PLAN TO REASSESS AT 1600
--- NOTE | 2023-11-24 11:39 | NUR ---
Currently on BiPAP. Son at bedside. Spoke with SIMONA Limon, states they are going to continue to treat patient and re-evaluate at 1600 whether or not to transfer to higher level facility. Allowed patient to rest at this time.
--- NOTE | 2023-11-24 12:27 | NUR ---
DARON IS RESTING IN BED WITH EYES OPEN. NO NEEDS ENDORSED AT THIS TIME. PUREWICK ASSESSED AND NOTED TO BE PATENT AND INTACT. SON RUSLAN AT BEDSIDE. SAFETY CHECK OF ROOM PERFORMED. TACHYCARDIA IMPROVING AND TACHYPNEA REMAINS IN THE 4O'S
--- NOTE | 2023-11-24 13:35 | NUR ---
DECREASED O2 TO 40%
--- NOTE | 2023-11-24 14:04 | NUR ---
DARON IS RESTING IN BED WITH EYES OPEN. NO NEEDS ENDORSED AT THIS TIME. SON RUSLAN REMAINS AT BEDSIDE. PUREWICK REMAINS PATENT AND INTACT. ABX GIVEN
[2023-11-24] MEDS ORDERED: POTASSIUM CHLORIDE 10 MEQ TABCR PO ONE (14:30)
--- NOTE | 2023-11-24 14:37 | NUR ---
VAPOTHERM IN USE FOR COMFORT AND O2 TRIAL. 25L/40%. DARON IS TOLERATING WELL. H20 SIPS, DENIES PAIN, DISCOMFORT, OR ANXIETY. GLADYS MERCER REMAINS AT BEDSIDE
--- NOTE | 2023-11-24 16:15 | NUR ---
RESTING WITH SIGNIFICANTLY LESS RESPIRATORY DISTRESS. 1600 TREATMENT HELD AND WILL CONTINUE TRIAL OFF OF BIPAP.
--- NOTE | 2023-11-24 16:43 | NUR ---
DARON CONTINUES TO ENDORSE COMFORT THIS HOUR. RESTING IN BED WITH EYES CLOSED. SON RUSLAN AT BEDSIDE. VAPOTHERM REMAINS IN USE
--- NOTE | 2023-11-24 17:12 | NUR ---
CONTACTED MD HERNÁNDEZ REGARDING CBG 387. ON HIS WAY TO REEVALUATE PATIENT
--- NOTE | 2023-11-24 17:15 | NUR ---
REPORT RECEIVED FROM JOESPH JARVIS ALL QUESTIONS ANSWERED. PT AWAKE IN BED, ON VAPOTHERM 25L, 40%, O2 SAT 93%. SON AT BEDSIDE, CALL LIGHT IN REACH.
[2023-11-24] MEDS ORDERED: INSULIN LISPRO 100 UNIT/ML ML SUB-Q SCH (17:30)
--- NOTE | 2023-11-24 17:40 | NUR ---
PT UP TO BEDSIDE COMMODE, WITH SMALL SOFT BM AND UNMEASURED VOID. BRIEF SOILED, CHANGED. PT DESAT TO 83% ON 25L AND 40% FIO2 WHILE TRANSFERING FROM COMMODE TO BED, RECOVERS QUICKLY BACK TO 92% ONCE BACK TO BED. NEW PUREWICK PLACED. DINNER AT BEDSIDE, INSULIN ADMINISTERED, SEE EMAR. PT DENIES FURTHER NEEDS AT THIS TIME. CALL LIGHT IN REACH AND SON AT BEDSIDE.
--- NOTE | 2023-11-24 19:30 | NUR ---
REPORT RECEIVED FROM DAY SHIFT RN. PATIENT RESTING IN BED WITH VAPOTHERM OXYGEN IN PLACE 20L AND 40%. PATIENT DENIES ANY DISCOMFORT AT THIS TIME. DENIES ANY SOB. APPEARS TO BE COMFORTABLE WITH RESPIRATIONS EVEN AND UNLABORED. NO FURTHER NEEDS AT THIS TIME. CALL LIGHT WITHIN REACH. FAMILY AT BEDSIDE.
--- NOTE | 2023-11-24 20:30 | NUR ---
PATIENT RESTING IN BED WITH FAMILY AT BEDSIDE. VSS. RESPIRATORY EFFORT APPEARS TO HAVE IMRPOVED PATIENT RESPIRATIONS ARE EVEN AND UNLABORED AT THIS TIME. HS BLOOD SUGAR TAKEN AND INSULIN ADMINISTERED. FAMILY BROUGHT IN FOOD FOR PATIENT. DENIES ANY PAIN OR DISCOMFORT, DENIES SOB. LUNGS DIM THOUGHOUT. BOWEL TONES ACTIVE X 4 QUADRANTS. NO NEEDS AT THIS TIME. CALL LIGHT WITHIN REACH.
--- NOTE | 2023-11-24 21:15 | NUR ---
PATIENT'S FAMILY LEFT, SON IS STAYING WITH PATIENT. PATIENT ATE FULL MEAL OF CHICK[employer] BROTH AND VEGETABLES THAT FAMILY BROUGHT IN.
--- NOTE | 2023-11-24 22:00 | NUR ---
PATIENT UP TO BSC FOR BM. FIO2 INCREASED TO 80% ON VAPOTHERM PATIENT DESATURATED TO 84% ON CURRENT SETTINGS. PATIENT BACK IN BED. IV ABX HUNG. IV SITES PATENT. NEW PUREWICK PLACED, PERICARE PROVIDED. RT NOTIFIED THAT PATIENT IS READY FOR THE BIPAP.
--- NOTE | 2023-11-24 22:55 | NUR ---
NOTED PATIENT TO BE ANXIOUS AND TACHYPENIA. RN DISCUSSED WITH PATIENT ABOUT ANXIETY MEDICATIONS. PATIENT AGREEABLE AND WOULD LIKE MEDICATIONS FOR ANXIETY WHILE WEARING BIPAP. RN SPOKE WITH MD VIA TELEPHONE. NEW ORDERS RECEIVED AND VERIFIED VIA VERBAL READ BACK.
[2023-11-24] MEDS ORDERED: LORazepam 0.5 MG TAB PO PRN (23:00)
--- NOTE | 2023-11-24 23:17 | NUR ---
PRN ADMINSTERED FOR ANXIETY. PATIENT ON BIPAP WITH SETTING OF 12/4 FIO2 60%. SA02 AT 92%. FRESH WATER GIVEN. NO FURTHER NEEDS AT THIS TIME. SON AT BEDSIDE CALL LIGHT WITHIN REACH.
[2023-11-25] VITALS (19 sets, daily range): BP systolic 84–113; BP diastolic 43–79
--- NOTE | 2023-11-25 00:17 | NUR ---
RT IN WITH PATIENT ADMINSTERING AHSAN TX.
--- NOTE | 2023-11-25 01:00 | NUR ---
PATIENT OFF BIPAP AND BACK TO VAPOTHERM AT THIS TIME SHE IS NOT TOLERATING WELL, PATIENT HAD BEEN ADMINISTERED 0.5MG PO ATIVAN FOR ANXIETY, PATIENT VERBALIZED SHE DID WANT SOMETHING TO HELP HER RELAX. PATIENT CONTINUED TO BE TACHYPNEIC AT 40-50 RESPIRATORY RATE. WITH STAFF AT BEDSIDE GIVING INSTRUCTIONS TO BREATH SLOW AND DEEP PATIENT WAS ABLE TO SLOW RESPIRATORY RATE 30'S RESPIRATORY RATE. PATIENT NOW ON VAPOTHERM TOLERATING MUCH BETTER 24/MIN RESPIRATIONS AND 95% OXYGEN SATURATION.
--- NOTE | 2023-11-25 02:50 | NUR ---
PATIENT RESTING IN BED WITH EYES CLOSED. RESPIRATIONS EVEN AND UNLABORED AT THIS TIME ALTHOUGH SHALLOW. RESPIRATORY RATE 23, OXYGEN SATURATION 94% ON 60% FIO2 VIA VAPOTHERM. CALL LIGHT WITHIN REACH.
--- NOTE | 2023-11-25 03:45 | NUR ---
IN ROOM TO ROUND ON PATIENT. RESTING COMFORTABLY IN BED WITH EYES CLOSED. VSS. RESPIRATIONS EVEN AND UNLABORED. CALL LIGHT WITHIN REACH.
--- NOTE | 2023-11-25 05:07 | NUR ---
PATIENT IS RESTING IN BED. APPEARS TO BE COMFORTABLE. DENIES ANY PAIN OR SOB AT THIS TIME. LUNG SOUNDS ARE DIMINISHED. SAO2 IS 93% ON VAPOTHERM WITH SETTINGS AT 20L AND 60%. DENIES ANY NEEDS AT THIS TIME. CALL LIGHT WITHIN REACH.
[2023-11-25 05:18] LABS: BASOPHILS 0.4 % (0-2); HEMATOCRIT 35.4 % (35.0-50.0); HEMOGLOBIN 12.1 g/dL (12.0-18.0); LYMPHOCYTES 17.1 % (24-44); MCH 29.4 (27-36); MCHC 34.1 g/dl (30-36); MCV 86.1 fl (81-99); MONOCYTES 4.3 % (0-12); NEUTROPHILS 78.2 % (39-80); PLATELET COUNT 294 K/uL (140-440); RBC 4.11 M/ul (4.3-5.7); RDW 12.7 (10.5-15.0)
[2023-11-25 05:33] LABS: ALBUMIN 2.3 g/dL (3.4-5.0); ALBUMIN/GLOBULIN RATIO 0.42 (1.1-2.4); ANION GAP 11.2 (7-21); BILIRUBIN, TOTAL 0.5 ng/dL (0.2-1.0); BUN/CREATININE RATIO 23.07 (6.0-28.6); CALCIUM 9.2 mg/dL (8.5-10.1); CREATININE, SERUM 0.65 mg/dL (0.55-1.02); MAGNESIUM 2.2 mg/dL (1.8-2.4); POTASSIUM 4.2 mmol/L (3.5-5.1); PROTEIN, TOTAL 7.8 g/dL (6.4-8.2)
--- NOTE | 2023-11-25 06:10 | NUR ---
AM MEDICATIONS ADMINISTERED. PATIENT RESTING COMFORTABLY IN BED. DENIES ANY PAIN. RESPIRTORY STATUS CONTINUES. NO NOTED SOB AT THIS TIME, SA02 WNL WHILE ON VAPOTHERM WITH SETTINGS AT 20L AND 50%. SLOWLY TITRATING DOWN PATIENT TOLLERATES.
--- NOTE | 2023-11-25 07:30 | NUR ---
REPORT RECEIVED [facility] [place] [place]. PT IS RESTING IN BED, WEARING VAPOTHERM, RT IN TO SEE PT.
--- NOTE | 2023-11-25 07:58 | NUR ---
PT RESTING IN BED ON BIPAP 02/25 70% FIO2, SPO2 90% AND RR 40. NO SIGNS OF ANXIETY, PT RESTING WITH EYES CLOSED. SON AT BEDSIDE, STATES MOTHER IS NOT ANXIOUS. RT IN TO DO AM TREATMENTS.
--- NOTE | 2023-11-25 08:40 | NUR ---
PTS SON CALLS TO REPORT THAT PT IS NOT TOLERATING THE BIAP "ITS TOO MUCH PRESSURE, SHE FEELS SHORT OF BREATH". RT IN TO SEE PT, DISCUSSED WITH PT AND SON THE NEED TO CONT THE BIPAP AND OFFERED ATIVAN TO HELP PT RELAX WHILE WEARING IT. 0.5MG PO ATIVAN GIVEN AND PT KEPT BIPAP ON.
--- NOTE | 2023-11-25 08:50 | NUR ---
VISITED TO INQUIRE IF PT DESIRES SHEET METAL ENGINEER TO VISIT. INQUIRY MADE THROUGH SON WHO RELAYED PT DECLINED OFFER. INSURANCE LEGAL ASSISTANT PROVIDED PRAYER.
--- NOTE | 2023-11-25 09:51 | NUR ---
IN UNIT TO DISCUSS WITH RNS AND RT PLAN OF CARE, POSSIBILITY OF TRANSFER OF PT. RT IN TO DO ABG.
[2023-11-25 10:00] LABS: BASE EXCESS, BLOOD GAS 2.9 mmol/L (-2-2); OXYGEN RECEIVED, BLOOD GAS 70%; PCO2, BLOOD GAS 43.1 mmHg (35-45); PH, BLOOD GAS 7.42 (7.35-7.45); PO2, BLOOD GAS 66 mmHg (80-100); TOTAL CO2, BLOOD GAS 29.3
--- NOTE | 2023-11-25 10:00 | NUR ---
NINFA RESULTS DISCUSSED WITH
--- NOTE | 2023-11-25 10:15 | NUR ---
PT PLACED ON VAPOTHERM TO HAVE DISCUSSION WITH MD REGARDING TRASFER TO A HIGHER LEVEL OF CARE. [facility] CAFETERIA OPERATOR SERVICE USED. SON AT BEDSIDE WELL, QUESTIONS FROM PT AND HER SON ANSWERED USING CAFETERIA OPERATOR. PT WAS GIVEN RISKS AND BENEFITS OF TRANSFER BY MD. DID NOT FEEL STRONG ENOUGH TO SIGN CONSENT FORMS, ASKED HER SON TO SIGN THEM FOR HER. PT THEN PLACED INTO PRONE POSITION. ONCE PT WAS IN PRONE POSITION HER SATS WENT UP TO 100%. SHE STATES SHE IS VERY COMFORTABLE. VAPOTHERM TITRATED DOWN TO 70% FIO2. IV SITE IN RIGHT ARM IS INFILTRATED- NEW ONE PLACED IN RIGHT FOREARM.
--- NOTE | 2023-11-25 12:07 | NUR ---
[facility] HERE TO TRANSFER PT TO [facility]. ALSO AT BEDSIDE.
--- NOTE | 2023-11-25 12:56 | NUR ---
REPORT CALLED TO CRUZ JARVIS AT [facility].
--- NOTE | 2023-11-25 16:08 | EKG ---
[facility] [address] [place], [place] [address] Signed Sinus tachycardia with short MI Left posterior fascicular block Abnormal ECG When compared with ECG of 21-Nov-2023 Sinus tachycardia with short MI has replaced normal sinus rhythm Confirmed by Brandy Cortes MD ([id number]) on 11/25/2023 4:08:10 PM Electronically Signed By: BRANDY CORTES MD 11/25/23 1608 PATIENT NAME: DARON RATLIFF Electrocardiogram DATE OF : 72 PHYSICIAN: BRANDY CORTES MD REPORT #: [id number] REPORT IS CONFIDENTIAL AND NOT TO BE RELEASED WITHOUT AUTHORIZATION
[2023-11-25 17:33] LABS: COMPLEMENT COMPONENT 4 19 mg/dL (10-40)
[2023-11-25 17:43] LABS: COMPLEMENT COMPONENT 3 120 mg/dL (90-180)
[2023-11-25 19:27] LABS: ALDOLASE 4.7 U/L (1.2-7.6); RHEUMATOID FACTOR 14 IU/mL (0-14)
[2023-11-25 22:06] LABS: CYCLIC CITRULLINATED PEP,IGG/A >250 Units (0-19)
[2023-11-26 00:03] LABS: ANTI-NUCLEAR AB ANA,IGG ELISA None Detected (None Detected)
[2023-11-26 06:49] LABS: JO-1 HISTIDYL-TRNA SYNTHET,IGG 0 AU/mL (0-40); SCLERODERMA (SCL-70) AB,IGG 0 AU/mL (0-40)
== END 2023-11-25 12:24 | disposition short-term general hospital (02) | DRG 193 ==
LOC: ED 10:25 → CCU 14:14 → MS 14:14 → CCU 11-21 15:36
PROVIDERS: Emergency Medicine; Student in an Organized Health Care Education/Training Program; ADMIT Internal Medicine; ATTEND Internal Medicine
PROC: 5A09357 Assistance with Respiratory Ventilation, Less than 24 Consecutive Hours, Continuous Positive Airway Pressure (ICD-10-PCS; principal; 2023-11-20)
PROC: 4A033R1 Measurement of Arterial Saturation, Peripheral, Percutaneous Approach (ICD-10-PCS; 2023-11-20)
DX: J18.9 Pneumonia, unspecified organism (principal); J80 Acute respiratory distress syndrome; M33.13 Other dermatomyositis without myopathy; M06.9 Rheumatoid arthritis, unspecified
CPT/HCPCS: 36415; 36600; 71045; 71260; 80048; 80053; 80061; 80202; 81001; 82085; 82553; 82803; 83036; 83605; 83735; 83880; 84484; 85025; 85379; 85610; 85651; 85730; 86038; 86140; 86161; 86200; 86431; 87040; 87070; 87205; 87502; 93005; 93010; 93306; 94640; 94660; 94667; 94668; 94761; 94762; 94799; A9270; J0456; J0696; J1650; J1815; J1940; J2543; J2919; J3370; J3475; J3480; J3490; J7030; J7060; Q9967; U0002